=== PATIENT | female | born 2000 | race Caucasian/White ===

== ENCOUNTER 2019-09-08 03:31 | Inpatient (IN) | payer MEDICAID ==
[~2019-09-08] VITALS: Ht 162.6 cm; Wt 88.0 kg
[2019-09-08] MEDS ORDERED: LACTATED RINGERS 1,000 ML IV SCH (04:00)
[2019-09-08] MEDS ORDERED: FERR-252 PO (04:09)
[2019-09-08] MEDS ORDERED: PNV11TAB3 PO (04:09)
[2019-09-08] MEDS ORDERED: ONDANSETRON 4 MG/2 ML VIAL IVP PRN ×2 (04:10→10:40)
[2019-09-08] MEDS ORDERED: PROMETHAZINE 25 MG/ML VIAL IVP PRN (04:10)
[2019-09-08] MEDS ORDERED: MORPHINE SULFATE 4 MG/ML SYR IVP PRN (04:10)
[2019-09-08] MEDS ORDERED: MORPHINE SULFATE 10 MG/ML VIAL ONE (04:57)
[2019-09-08 05:02] VITALS: BP 129/63
[2019-09-08] MEDS ORDERED: ONDANSETRON 8 MG in NACL 0.9% 50 ML IV PRN (10:15)
[2019-09-08] MEDS ORDERED: NACL 0.9% 500 ML IV SCH (10:40)
[2019-09-08] MEDS ORDERED: NACL 0.9% 1,000 ML IV SCH (10:40)
[2019-09-08] MEDS: cefTRIAXone 2,000 MG in DEXTROSE 5% 100 ML IV SCH (11:48)
[2019-09-08] MEDS: ACETAMINOPHEN 325 MG TAB PO PRN ×2 (13:06→23:38)
[2019-09-08 13:52] LABS: APPEARANCE,URINE CLEAR (CLEAR); BILIRUBIN,URINE NEGATIVE (NEGATIVE); BLOOD, URINE 3+ (NEGATIVE); COLOR,URINE YELLOW (YELLOW); LEUKOCYTE ESTERASE ,URINE NEGATIVE (NEGATIVE); NITRITE, URINE NEGATIVE (NEGATIVE); PH,URINE 6.5 (5.0-9.0); UGLUCOSE NEGATIVE (NEGATIVE)
[2019-09-08 13:56] LABS: WBC,URINE 0-5 /HPF (0-5)
[2019-09-09] MEDS: ACETAMINOPHEN 325 MG TAB PO PRN (05:38)
[2019-09-09 06:03] LABS: BASOPHILS % (AUTO) 0.2 % (0.0-2.0); EOSINOPHILS # (AUTO) 0.1 K/uL (0-0.4); EOSINOPHILS % (AUTO) 0.8 % (0.0-4.0); HEMATOCRIT 31.2 % (36-48); HEMOGLOBIN 10.6 g/dL (12.0-16.0); LYMPHOCYTES # (AUTO) 2.4 K/uL (2.5-16.5); LYMPHOCYTES % (AUTO) 20.6 % (20.5-51.1); MEAN CORPUSCULAR HEMOGLOBIN 30 pg (27-31); MEAN CORPUSCULAR HGB CONC 34 g/dL (33-37); MEAN CORPUSCULAR VOLUME 88.4 fL (80-94); MONOCYTES # (AUTO) 0.9 K/uL (0.8-1.0); NEUTROPHILS # (AUTO) 8.2 K/uL (1.8-7.7); NEUTROPHILS % (AUTO) 70.4 % (42.2-75.2); PLATELET COUNT (AUTO) 155 K/uL (140-450); RED BLOOD CELL COUNT(AUTO) 3.53 MIL/uL (4.20-5.40); RED CELL DISTRIBUTION WIDTH 15.3 % (11.6-13.7); WHITE BLOOD COUNT (AUTO) 11.7 K/uL (4.5-11.0)
--- NOTE | 2019-09-09 07:00 | NUR ---
PATIENT HAS BEEN SCREENED AND CATEGORIZED LOW NUTRITION RISK. PATIENT WILL BE SEEN WITHIN 7 DAYS OF ADMISSION. 09/16/19 SHAKEEL CHRISTINE MS, RDN
[2019-09-09] MEDS: cefTRIAXone 2,000 MG in DEXTROSE 5% 100 ML IV SCH (11:05)
== END 2019-09-09 16:00 | disposition home or self-care (01) | DRG 566 ==
LOC: MLD 03:31 → MFCC 12:04
PROVIDERS: ADMIT Obstetrics & Gynecology; ATTEND Obstetrics & Gynecology
DX: O23.03 Infections of kidney in pregnancy, third trimester (principal); Z3A.32 32 weeks gestation of pregnancy; N13.6 Pyonephrosis
CPT/HCPCS: 36415; 76770; 81001; 85025; J0696; J2270; J2405; J7060; J7120; Q0092